=== PATIENT | male | born 1990 | race African-American/Black ===

== ENCOUNTER 2017-04-14 22:15 | Emergency (ER) | payer SELFPAY ==
[2017-04-15 01:57] VITALS: BP 132/68
== END 2017-04-15 01:57 | disposition home or self-care (01) ==
LOC: ED 22:15
DX: S01.322A Laceration with foreign body of left ear, initial encounter (principal); S03.2XXA Dislocation of tooth, initial encounter; W50.0XXA Accidental hit or strike by another person, initial encounter; Y93.62 Activity, american flag or touch football; Y99.8 Other external cause status; Y92.89 Other specified places as the place of occurrence of the external cause
CPT/HCPCS: 90715; J2001

== ENCOUNTER 2017-04-25 09:27 | Emergency (ER) | payer SELFPAY ==
[~2017-04-25] VITALS: Ht 177.8 cm; Wt 75.1 kg
[2017-04-25 11:11] VITALS: BP 128/60
== END 2017-04-25 11:11 | disposition home or self-care (01) ==
LOC: ED 09:27
DX: S01.312D Laceration without foreign body of left ear, subsequent encounter (principal); W50.0XXD Accidental hit or strike by another person, subsequent encounter; Y92.89 Other specified places as the place of occurrence of the external cause; Y99.8 Other external cause status

== ENCOUNTER 2017-12-18 21:23 | Emergency (ER) | payer OTHER ==
[2017-12-19 01:13] VITALS: BP 128/74
== END 2017-12-19 01:13 | disposition home or self-care (01) ==
LOC: ED 21:23
DX: S01.511A Laceration without foreign body of lip, initial encounter (principal); W50.0XXA Accidental hit or strike by another person, initial encounter; Y93.67 Activity, basketball; Y92.89 Other specified places as the place of occurrence of the external cause; Y99.8 Other external cause status